=== PATIENT | female | born 1995 | race Caucasian/White ===

== ENCOUNTER 2016-12-12 20:13 | Emergency (ER) | payer MEDICAID, OTHER ==
[2016-12-12 20:15] VITALS: BP 132/88; PULSE 93; RESP 14; TEMP 98.8; O2SAT 100
[2016-12-12 20:50] VITALS: RESP 16
--- NOTE | 2016-12-12 21:12 | PD ---
HPI Chief Complaint: Related Problem Time Seen by Provider: 20:42 Travel History International Travel<30 days: No Contact w/Intl Traveler<30days: No Traveled to known affect area: No History of Present Illness HPI This is a 21-year-old female at approximately 6-7 weeks gestational age presents emergency Department with vaginal bleeding. Patient states also been having some abdominal cramping wrapping around her back for the past 48 hours. This been intermittent in nature. She states that she was having some minimal spotting and turn into a gush of blood this morning and now nearly resolved. She also endorses some brown discharge. Denies any nausea vomiting or dysuria. Denies any diarrhea constipation. Symptoms are moderate. PFSH Past Medical History Medical History: Denies Significant Hx ?: Past Surgical History Surgical History: No Previous Surgery Family History Narrative Family History Noncontributory Social History Tobacco Use: No Allergies-Medications (Allergen,Severity, Reaction): Coded Allergies: No Known Allergies (Unverified , 12/12/16) Review of Systems Except as stated in HPI: all other systems reviewed are Neg Physical Exam Narrative GENERAL: Well-developed well-nourished but thin in no apparent distress SKIN: Focused skin assessment warm/dry. HEAD: Atraumatic. Normocephalic. EYES: Pupils equal and round. No scleral icterus. No injection or drainage. ENT: No nasal bleeding or discharge. Mucous membranes pink and moist. NECK: Trachea midline. No JVD. CARDIOVASCULAR: Regular rate and rhythm. No murmur appreciated. RESPIRATORY: No accessory muscle use. Clear to auscultation. Breath sounds equal bilaterally. GASTROINTESTINAL: Abdomen soft, non-tender, nondistended. Hepatic and splenic margins not palpable. GENITOURINARY: Exam was performed with female nurse railway signalling engineer present at all times. Grossly normal external female genitalia. No mass or lesion. No cervical motion tenderness. Os is closed and nulliparous. No bimanual tenderness, MUSCULOSKELETAL: No obvious deformities. No clubbing. No cyanosis. No edema. NEUROLOGICAL: Awake and alert. No obvious cranial nerve deficits. Motor grossly within normal limits. Normal speech. PSYCHIATRIC: Appropriate mood and affect; insight and judgment normal. Data Data Last Documented VS Vital Signs Date Time Temp Pulse Resp B/P Pulse Ox O2 Delivery O2 Flow Rate FiO2 12/13/16 00:14 70 18 108/68 98 Room Air 12/12/16 20:15 98.8 Orders Basic Metabolic Panel (Bmp) (12/12/16 21:01) Beta Hcg (Quant/Titer) (12/12/16 21:01) Complete Blood Count With Diff (12/12/16 21:01) Prothrombin Time / Inr (Pt) (12/12/16 21:01) Act Partial Throm Time (Ptt) (12/12/16 21:01) Urinalysis - C+S If Indicated (12/12/16 21:01) Iv Access Insert/Monitor (12/12/16 21:01) Ecg Monitoring (12/12/16 21:01) Oximetry (12/12/16 21:01) Sodium Chloride 0.9% Flush (Ns Flush) (12/12/16 21:15) Ed Poc Ultrasound (12/12/16 21:01) Abo/Rh Blood Type (12/12/16 21:01) Wet Prep Profile (12/12/16 21:14) Gc And Chlamydia Pcr (12/12/16 21:14) Us Pelvis (Ques Pr/Ect)W Trans (12/12/16 22:27) Labs Laboratory Tests Test 12/12/16 12/12/16 12/12/16 21:06 21:45 22:36 White Blood Count 7.0 TH/MM3 Red Blood Count 4.46 MIL/MM3 Hemoglobin 13.3 GM/DL Hematocrit 37.9 % Mean Corpuscular Volume 84.9 FL Mean Corpuscular Hemoglobin 29.7 PG Mean Corpuscular Hemoglobin 35.0 % Concent Red Cell Distribution Width 13.0 % Platelet Count 226 TH/MM3 Mean Platelet Volume 8.5 FL Neutrophils (%) (Auto) 63.2 % Lymphocytes (%) (Auto) 25.4 % Monocytes (%) (Auto) 7.9 % Eosinophils (%) (Auto) 2.6 % Basophils (%) (Auto) 0.9 % Neutrophils # (Auto) 4.4 TH/MM3 Lymphocytes # (Auto) 1.8 TH/MM3 Monocytes # (Auto) 0.6 TH/MM3 Eosinophils # (Auto) 0.2 TH/MM3 Basophils # (Auto) 0.1 TH/MM3 CBC Comment DIFF FINAL Differential Comment Urine Color LIGHT-YELLOW Urine Turbidity CLEAR Urine pH 5.5 Urine Specific [place] 1.003 Urine Protein NEG mg/dL Urine Glucose (UA) NEG mg/dL Urine Ketones TRACE mg/dL Urine Occult Blood LARGE Urine Nitrite NEG Urine Bilirubin NEG Urine Urobilinogen LESS THAN 2.0 MG/DL Urine Leukocyte Esterase NEG Urine RBC 1 /hpf Urine Squamous Epithelial <1 /hpf Cells Urine Bacteria FEW /hpf Microscopic Urinalysis Comment CULT NOT INDICATED Sodium Level 140 MEQ/L Potassium Level 3.5 MEQ/L Chloride Level 106 MEQ/L Carbon Dioxide Level 24.1 MEQ/L Anion Gap 10 MEQ/L Blood Urea Nitrogen 16 MG/DL Creatinine 0.78 MG/DL Estimat Glomerular Filtration 92 ML/MIN Rate Random Glucose 96 MG/DL Calcium Level 9.2 MG/DL Human Chorionic Gonadotropin, 2642 MIU/ML Quant Clue Cells (Wet Prep) NONE SEEN Vaginal Trichomonas (Wet Prep) NONE SEEN Vaginal Yeast (Wet Prep) NONE SEEN Chlamydia trachomatis DNA NOT DETECTED (PCR) Neisseria gonorrhoeae DNA NOT DETECTED (PCR) Prothrombin Time 11.1 SEC Prothromb Time International 1.0 RATIO Ratio Activated Partial 26.8 SEC Thromboplast Time Blood Type B POSITIVE Blood Bank Comment [facility] Medical Decision Making Medical Screen Exam Complete: Yes Emergency Medical Condition: Yes Differential Diagnosis Threatened miscarriage, Rh mismatch, anemia, completed miscarriage, retained products conception, ectopic . Narrative Course Patient was roomed in emergency department, she is fairly certain that her blood type is AB+. Blood type was sent showing B positive. Labs are reassuring. Her beta-hCG is 2600. Official ultrasound was ordered and shows: Last 24 hours Impressions Pelvis Ultrasound 12/12/167 Signed Impressions: Service Date/Time: Monday, December 12, 2016 23:52 - CONCLUSION: Tiny amount of fluid within the endometrial canal in the fundus. Could be gestational sac. Both ovaries are unremarkable Milind Velasquez MD Discussed with the patient the findings which are consistent with either an early a threatened miscarriage or completed miscarriage. Given her symptomology and a progression of symptoms sounds like she was having some contractions which led to bleeding and finally a miscarriage. I think this most likely scenario knife conveyed this to the patient. However is not definitive. I recommended that she return to the emergency department or her OB /ELECTRIC REFRIGERATOR SERVICER for repeat bradycardia hCG in 48 hours. I recommend that she continue early care including vitamins and absence from illicit substances and alcohol abstinence from tobacco. Recommended pelvic rest until the repeat Quant. She is understanding. She is stable for discharge at this time. My index of suspicion after the ultrasound for an ectopic is quite low. Procedures Procedure Narrative Bedside ultrasound transabdominal: Transdermal views were obtained of the uterus which did show some intrauterine hematoma consistent with inevitable miscarriage. No pelvic free fluid. No intrauterine identified. Diagnosis Primary Impression: Threatened miscarriage in early Additional Instructions: Recommend having a repeat beta hCG in 48 hours (see blood test). Today her level is 2642. Disposition: 01 DISCHARGE HOME Condition: Stable Diego Mccormick MD December 12, 2016 21:12
[2016-12-12] MEDS ORDERED: SODIUM CHLORIDE 0.9% FLUSH 10 ML FLUSH IV FLUSH PRN (21:15)
[2016-12-12 21:41] LABS: AUTOMATED NEUTROPHIL # 4.4 TH/MM3 (1.8-7.7); BASOPHIL # 0.1 TH/MM3 (0-0.2); BASOPHIL % 0.9 % (0.0-2.0); EOSINOPHIL # 0.2 TH/MM3 (0-0.4); EOSINOPHIL % 2.6 % (0.0-4.0); HEMATOCRIT 37.9 % (35.0-46.0); HEMO FLAGS DIFF FINAL; LYMPH % 25.4 % (9.0-44.0); LYMPHOCYTE # 1.8 TH/MM3 (1.0-4.8); MEAN CELL VOLUME 84.9 FL (80.0-100.0); MEAN CORPUSCULAR HEMOGLOBIN 29.7 PG (27.0-34.0); MONO % 7.9 % (0.0-8.0); NEUT % 63.2 % (16.0-70.0); PLATELET COUNT 226 TH/MM3 (150-450); RED BLOOD COUNT 4.46 MIL/MM3 (4.00-5.30)
[2016-12-12 21:48] LABS: BLOOD, URINE LARGE (NEG); COMMENT (UR) CULT NOT INDICATED; CULTURE IF INDICATED CULT NOT INDICATED; GLUCOSE,URINE NEG (NEG); KETONE, URINE TRACE mg/dL (NEG); NITRITE,URINE NEG (NEG); PH, URINE 5.5 (5.0-8.5); SQUAMOUS EPITHELIAL CELL URINE <1 /hpf (0-5); URINE COLOR LIGHT-YELLOW (YELLW/STRAW)
[2016-12-12 21:50] LABS: BACTERIA, URINE FEW /hpf
[2016-12-12 21:53] VITALS: PULSE 92; O2SAT 99
[2016-12-12 22:05] LABS: BICARBONATE 24.1 MEQ/L (21.0-32.0); POTASSIUM 3.5 MEQ/L (3.5-5.1)
[2016-12-12 23:07] LABS: APTT (PATIENT) 26.8 SEC (24.3-30.1); PROTHROMBIN TIME - PATIENT 11.1 SEC (9.8-11.6)
[2016-12-13 00:14] VITALS: BP 108/68; PULSE 70; RESP 18; O2SAT 98
[2016-12-13 00:17] LABS: CHLAMYDIA PCR NOT DETECTED (NOT DETECT); NEISSERIA PCR NOT DETECTED (NOT DETECT)
--- NOTE | 2016-12-13 01:02 | RADRPT ---
EXAM DATE/TIME: 12/12/2016 23:52 [facility] COMPARISON: No previous studies available for comparison. INDICATIONS : Bleeding with . LAB(S): Beta-hC MEDICAL HISTORY : . Abnormal vaginal bleeding. SURGICAL HISTORY : None. ENCOUNTER: Initial ACUITY: 1 day PAIN SCORE: 0/10 LOCATION: Bilateral pelvis MEASUREMENTS: UTERUS: 8.4 x 5.0 x 3.5 cm ENDOMETRIAL STRIPE: 7 mm RIGHT OVARY: 4.1 x 2.2 x 2.2 cm LEFT OVARY: 3.5 x 2.6 x 1.4 cm FREE FLUID: No CROWN RUMP LENGTH: Non visualized. = WKS DAYS FHR: Non visualized. BPM FINDINGS: UTERUS: The myometrium has homogeneous echotexture without mass. 2 x 1 x 3 mm fluid within the fundus could b e a miniscule gestational sac, too early to date. RIGHT OVARY: Ovary contains no mass or significant cystic lesion. LEFT OVARY: Ovary contains no mass or significant cystic lesion. MISCELLANEOUS: No free fluid. CONCLUSION: Tiny amount of fluid within the endometrial canal in the fundus. Could be gestational sac. Both ovar ies are unremarkable Milind Velasquez MD on December 13, 2016 at 1:00 Board Certified Radiologist. This report was verified electronically.
== END 2016-12-13 01:42 | disposition home or self-care (01) ==
LOC: NEPD 20:13
DX: O20.0 Threatened abortion (principal)
CPT/HCPCS: 76700; 76817; 80048; 81001; 84702; 85025; 85610; 85730; 86900; 86901; 87210; 87491; 87591; 99284

== ENCOUNTER 2016-12-15 09:50 | Emergency (ER) | payer MEDICAID, OTHER ==
[~2016-12-15] VITALS: Ht 167.6 cm; Wt 50.0 kg
[2016-12-15 09:51] VITALS: BP 119/67; PULSE 64; RESP 20; TEMP 97.7; O2SAT 100
[2016-12-15 09:58] VITALS: BP 130/79; PULSE 83; RESP 16; O2SAT 100
[2016-12-15] MEDS ORDERED: TRICTAB PO (10:02)
--- NOTE | 2016-12-15 10:31 | PD ---
HPI Chief Complaint: Related Problem Time Seen by Provider: 10:22 Travel History International Travel<30 days: No Contact w/Intl Traveler<30days: No Traveled to known affect area: No History of Present Illness HPI 21-year-old female is here for recheck beta hCG. Patient was seen in emergency room 2 days ago for vaginal bleeding. Patient approximate about 6-7 week . Patient was having abdominal cramping and vaginal bleeding 2 days before that. Patient had beta hCG titer done which was 2642. Pelvic ultrasound shows small amount of fluid within the endometrial canal. Patient was advised to return today for follow-up beta-hCG titer. Patient denies any abdominal pain, pelvic pain or vaginal bleeding since last visit. Patient's blood type B+. PFSH Past Medical History Medical History: Denies Significant Hx Diminished Hearing: No Immunizations Current: No Influenza Vaccination: No ?: LMP: 11/01/16 : 1 Past Surgical History Surgical History: No Previous Surgery Social History Alcohol Use: Yes (RARE) Tobacco Use: No Substance Use: No Allergies-Medications (Allergen,Severity, Reaction): Coded Allergies: No Known Allergies (Unverified , 12/15/16) Reported Meds & Prescriptions Reported Meds & Active Scripts Active Reported ( Vit-Ferrous Fumarate) 1 Tab Tab 1 Tab PO DAILY Review of Systems General / Constitutional: No: Fever Eyes: No: Visual changes HENT: No: Headaches Cardiovascular: No: Chest Pain or Discomfort Respiratory: No: Shortness of Breath Gastrointestinal: No: Abdominal Pain Genitourinary: No: Dysuria Musculoskeletal: No: Pain Skin: No Rash Neurologic: No: Weakness Psychiatric: No: Depression Endocrine: No: Polydipsia Hematologic/Lymphatic: No: Easy Bruising Physical Exam Narrative GENERAL: Well-nourished, well-developed patient. SKIN: Focused skin assessment warm/dry. HEAD: Normocephalic. EYES: No scleral icterus. No injection or drainage. NECK: Supple, trachea midline. No JVD or lymphadenopathy. CARDIOVASCULAR: Regular rate and rhythm without murmurs, gallops, or rubs. RESPIRATORY: Breath sounds equal bilaterally. No accessory muscle use. GASTROINTESTINAL: Abdomen soft, non-tender, nondistended. MUSCULOSKELETAL: No cyanosis, or edema. BACK: Nontender without obvious deformity. No CVA tenderness. Neurologic exam normal. Data Data Last Documented VS Vital Signs Date Time Temp Pulse Resp B/P Pulse Ox O2 Delivery O2 Flow Rate FiO2 12/15/16 09:58 83 16 130/79 100 Room Air 12/15/16 09:51 97.7 Orders Beta Hcg (Quant/Titer) (12/15/16 10:24) Labs Laboratory Tests Test 12/15/16 10:32 Human Chorionic Gonadotropin, 4284 MIU/ML Quant MDM Medical Decision Making Medical Screen Exam Complete: Yes Emergency Medical Condition: Yes Differential Diagnosis Differential diagnosis including threatened AB, incomplete AB, completed AB, ectopic . Narrative Course 21-year-old female returning for recheck beta hCG titer. No abdominal pain, pelvic pain or vaginal bleeding today. Diagnosis Primary Impression: Threatened Patient Instructions: General Instructions Additional Instructions: Continue with vitamins. Follow-up with mechanical tech. Return if increased abdominal pain, pelvic pain, vaginal bleeding. Med/Other Pt SpecificInfo: No Meds Exist/No RX given Disposition: 01 DISCHARGE HOME Condition: Stable Chava Randall MD December 15, 2016 10:31
[2016-12-15 11:19] LABS: BETA HCG QUANT 4284 MIU/ML (0-5)
== END 2016-12-15 11:31 | disposition home or self-care (01) ==
LOC: NEPD 09:50
DX: O20.0 Threatened abortion (principal)
CPT/HCPCS: 84702; 99283